=== PATIENT | female | born 1995 | race Caucasian/White ===

== ENCOUNTER 2016-09-19 03:39 | Emergency (ER) | payer OTHER ==
[~2016-09-19] VITALS: Ht 172.7 cm; Wt 64.5 kg
[2016-09-19 03:43] VITALS: TEMP 36.7; Ht 172.7 cm; Wt 64.5 kg
[2016-09-19 03:50] VITALS: O2SAT 100
[2016-09-19] MEDS ORDERED: CLR10 PO (04:14)
[2016-09-19] MEDS ORDERED: GUAI1TAB69 PO (04:14)
[2016-09-19] MEDS ORDERED: ALUMINUM/MAGNESIUM SUSP 30 ML UDC PO STA (04:41)
[2016-09-19] MEDS ORDERED: LIDOCAINE HCL 2% VISC SOLN 20 ML UDC PO STA (04:41)
--- NOTE | 2016-09-19 05:19 | EMERGENCY ROOM VISIT NOTE ---
History Report prepared by Hua: Lore Mendez Under the Supervision of: Dr. Kaitlin Turk M.D. First contact with patient: 03:57 Chief Complaint: CHEST PAIN Stated Complaint: CHEST PRESSURE/PAIN,BACK PAIN,ABD PAIN,COLD SX Nursing Triage Summary: Pt reports chest pain that started at 6pm yesterday. Reports the pain was so severe she was unable to sleep. Similar episode Friday, but went away. Pain gets better when she takes a deep breath. Pain located mid-sternal. Tried taking antacid without relief. Pt also reports nasal congestion that started Friday. History of Present Illness The patient is a 21 year old female who presents to the Emergency Room with complaints of intermittent mid-chest pain starting yesterday. The patient describes the pain to radiate to both sides of her chest and through her back. She first had the pain 5 days ago which improved. She then started having cold- like symptoms, including congestion and a low grade fever after which she started having the chest pain again. The chest pain resolved soon after. Yesterday, she started having the pain again after drinking coffee. She describes it to be a sharp pain. She also complains of upper abdominal pain. She notes nausea but denies vomiting. She denies any worsening pain with deep breathing. She took an antacid with some relief in her pain. She reports intermittent shortness of breath. She denies cough, lower extremity swelling, or any other complaints. She is not on any control medications. She denies any chance of . She recently had her menstrual period. She is scheduled to have a colonoscopy for rectal bleeding. Source of History: patient Onset: yesterday Position: chest (mid) Quality: sharp Timing: intermittent Modifying Factors (Relieving): other (antacid with some relief ) Associated Symptoms: + SOB, + abdominal pain, + nausea, No cough, No vomiting Review of Systems See HPI for pertinent positives & negatives. A total of 10 systems reviewed and were otherwise negative. Past Medical & Surgical Surgical Problems: (1) [place] teeth removed Family History Diabetes mellitus Social History Smoking Status: Never Smoker Marital Status: single Housing Status: lives with roommate Occupation Status: [employer] student Current/Historical Medications Scheduled Famotidine (Pepcid), 1 TAB PO BID Pantoprazole (Protonix), 40 MG PO DAILY Scheduled PRN Guaifenesin (Mucinex Maximum Strength), 1 TAB PO BID PRN for Nasal Congestion Loratadine (Claritin), 10 MG PO DAILY PRN for ALLERGY SX Allergies Coded Allergies: No Known Allergies (Unverified , 09/19/16) Physical Exam Vital Signs Date Time Temp Pulse Resp B/P Pulse Ox O2 Delivery O2 Flow Rate FiO2 09/19/16 06:00 71 17 106/72 98 09/19/16 05:09 89 17 97 09/19/16 05:00 114/74 09/19/16 04:39 76 13 99 09/19/16 04:30 132/95 09/19/16 04:09 81 13 100 09/19/16 04:00 129/91 09/19/16 03:58 86 09/19/16 03:53 125/82 09/19/16 03:50 100 Room Air 09/19/16 03:45 100 Room Air 09/19/16 03:43 36.7 105 16 127/86 99 Room Air Physical Exam Vital signs reviewed. General: Well-appearing, in no significant distress. HEENT: No scleral icterus, PERRLA, neck supple. Atraumatic. Cardiovascular: Regular rate and rhythm, no extra sounds. Pulmonary: Clear to auscultation bilaterally, normal work of breathing. Abdomen: Soft, mild epigastric abdominal tenderness, nondistended, positive bowel sounds. Musculoskeletal: Atraumatic, no peripheral edema. Neurologic: Patient awake alert and oriented x 3, full strength in all 4 extremities. Cranial nerves 2 through 12 grossly intact. Skin: Warm, dry, no rash Medical Decision & Procedures ER Provider Diagnostic Interpretation: X-ray results as stated below per interpretation by me: CHEST X-RAY No focal lung consolidation, no failure, normal mediastinum silhouette. Medications Administered Medications (Trade) Dose Ordered Sig/Celina Route Start Time Stop Time Status Last Admin Dose Admin Lidocaine HCl (Viscous Lidocaine 2% Soln) 10 ml NOW STAT PO 09/19/16 04:41 09/19/16 04:42 DC 09/19/16 04:57 10 ML Al Hydroxide/Mg Hydroxide (Maalox Susp) 30 ml NOW STAT PO 09/19/16 04:41 09/19/16 04:42 DC 09/19/16 04:57 30 ML ECG Indication: chest pain Rate (beats per minute): 88 Rhythm: normal sinus Findings: no acute ischemic change, no ectopy, other (nonspecific ST and T wave abnormalities) ED Course 0357: Past medical records reviewed. The patient was evaluated in room B12B. A complete history and physical examination was performed. 0441: Maalox Susp 30 ml PO, Lidocaine HCl 10 ml PO 0549: Upon reevaluation, the patient appeared to have improvement of her symptoms. I discussed findings with her. She verbalized agreement of the treatment plan. She was discharged home. Medical Decision Differential diagnosis: Acute coronary syndrome, pulmonary embolus, aortic dissection, musculoskeletal pain, pneumonia, pleural effusion, pneumothorax, GERD This patient was evaluated and appeared to be in no significant distress. Patient's EKG reveals normal sinus rhythm without ectopy or ischemia. Chest x- ray is clear. Given the patient's symptoms and a positive response to GI cocktail, I feel this is likely gastritis. She has no risk factors for PE. She does not smoke nor she on control pills. She has not traveled recently. The patient will be placed on Protonix 40 mg daily. She will use Pepcid 20 mg twice a day when necessary. She will follow-up with her physician this week for reevaluation. She is scheduled for colonoscopy next week. Patient was asked to contact her wood tile installation helper regarding an upper endoscopy. She will return to the ER for worsening of symptoms or any medical concerns. Impression Primary Impression: GERD (gastroesophageal reflux disease) Scribe Attestation The scribe's documentation has been prepared under my direction and personally reviewed by me in its entirety. I confirm that the note above accurately reflects all work, treatment, procedures, and medical decision making performed by me. Departure Information Dispostion Home / Self-Care Prescriptions Famotidine (PEPCID) 20 Mg Tab 1 TAB PO BID for 30 Days, #60 TAB 3 Refills Prov: Kaitlin Turk M.D. 09/19/16 Pantoprazole (Protonix) 40 Mg Tab 40 MG PO DAILY, #30 TAB Prov: Kaitlin Turk M.D. 09/19/16 Referrals [facility] (PCP) Forms HOME CARE DOCUMENTATION FORM, IMPORTANT VISIT INFORMATION Patient Instructions My [facility] Additional Instructions Diagnosis: GERD Protonix 40 mg once daily for 1 month. Pepcid 20 mg twice daily as needed for reflux. Drink plenty of clear fluids. Avoid NSAIDs such as aspirin, Aleve and ibuprofen. Avoid coffee, soda, greasy and spicy foods. Follow-up with your wood tile installation helper week for reevaluation and return to the ER for worsening of symptoms or any medical concerns. Problem Qualifiers Primary Impression: GERD (gastroesophageal reflux disease) Esophagitis presence: with esophagitis Qualified Codes: K21.0 - Gastro- esophageal reflux disease with esophagitis
[2016-09-19] MEDS ORDERED: PANT40TA PO (05:51)
[2016-09-19] MEDS ORDERED: FAMO40TA6 PO (05:52)
[2016-09-19] MEDS ORDERED: FAMO20TA9 PO (05:52)
[2016-09-19 06:00] VITALS: BP 106/72; PULSE 71; O2SAT 98
--- NOTE | 2016-09-19 07:41 | DIAGNOSTIC IMAGING REPORT ---
SINGLE VIEW CHEST CLINICAL HISTORY: Atypical chest pain. FINDINGS: An AP, portable, upright chest radiograph is obtained. No prior studies are available for comparison at the time of dictation. The examination is mildly degraded by portable technique and patient rotation. The cardiomediastinal silhouette is unremarkable. The lungs and pleural spaces are clear. No pneumothorax is seen. The bony thorax is grossly intact. IMPRESSION: No active disease in the chest. Electronically signed by: Jean Claude Mitchell M.D. 09/19/2016 7:39 AM Dictated Date/Time: 09/19/2016 7:38 AM
== END 2016-09-19 06:00 | disposition home or self-care (01) ==
LOC: C.EDB 03:41
DX: K21.0 Gastro-esophageal reflux disease with esophagitis (principal); Z83.3 Family history of diabetes mellitus